=== PATIENT | male | born 1985 | race Caucasian/White ===

== ENCOUNTER 2022-07-16 16:04 | Emergency (ER) | payer MEDICAID ==
[~2022-07-16] VITALS: Ht 170.2 cm; Wt 65.8 kg
[2022-07-16 18:10] VITALS: BP 112/69
--- NOTE | 2022-07-16 18:10 | NUR ---
pt self presents to ed c/o suicidal ideation w/ plan to overdose on fentanyl. denies hi. requesting medical clearance [facility] to [facility]. gowned. security called for wanding. belongings to safe locker. awaiting md de dios.
--- NOTE | 2022-07-16 18:32 | NUR ---
covid specimen collected. 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
[2022-07-16 19:20] LABS: CARBON DIOXIDE 32 mmol/L (21-32); CHLORIDE 102 mmol/L (98-107); CREATININE 0.8 mg/dL (0.6-1.3); GLUCOSE 90 mg/dL (74-106); POTASSIUM 3.9 mmol/L (3.5-5.1); SODIUM SERUM 139 mmol/L (136-145); UREA NITROGEN, BLOOD 12 mg/dL (7-18)
[2022-07-16 19:27] LABS: ALANINE AMINOTRANSFERASE 25 U/L (12-78); ALBUMIN 4.4 g/dL (3.4-5.0); ALKALINE PHOSPHATASE 85 U/L (46-116); ASPARTATE AMINOTRANSFERASE 21 U/L (15-37); BILIRUBIN,DIRECT 0.1 mg/dL (0.0-0.2); BILIRUBIN,TOTAL 0.7 mg/dL (0.2-1.0); TOTAL PROTEIN, SERUM 7.8 g/dL (6.4-8.2)
[2022-07-16 19:29] LABS: BILIRUBIN,URINE NEGATIVE (NEGATIVE); COLOR,URINE YELLOW (YELLOW); LEUKOCYTE ESTERASE ,URINE NEGATIVE (NEGATIVE); NITRITE, URINE NEGATIVE (NEGATIVE); PH,URINE 5.5 (5.0-8.0); PROTEIN,URINE NEGATIVE (NEGATIVE); UGLUCOSE NEGATIVE (NEGATIVE); UROBILINOGEN,URINE 0.2 EU/dL (0.2)
[2022-07-16 19:32] LABS: ACETAMINOPHEN 0 ug/ml (10-30); ALCOHOL, BLOOD < 3 mg/dL (0-0)
[2022-07-16 20:16] LABS: BASOPHILS # (AUTO) 0.1 K/uL (0.0-0.2); BASOPHILS % (AUTO) 0.9 % (0.0-2.0); EOSINOPHILS % (AUTO) 5.2 % (0.0-6.0); HEMATOCRIT 43 % (39-51); HEMOGLOBIN 14.4 g/dL (13.5-17.5); LYMPHOCYTES # (AUTO) 3.1 K/uL (0.8-4.8); MEAN CORPUSCULAR HGB CONC 33 g/dl (31.0-36.0); MEAN CORPUSCULAR VOLUME 100 fL (80-96); MONOCYTES # (AUTO) 1.1 K/uL (0.1-1.30); MONOCYTES % (AUTO) 10.1 % (2.0-12.0); NEUTROPHILS # (AUTO) 5.7 K/uL (1.8-8.9); NEUTROPHILS % (AUTO) 53.8 % (43.0-81.0); PLATELET COUNT (AUTO) 556 K/uL (150-450); RED BLOOD CELL COUNT(AUTO) 4.33 MIL/uL (4.5-6.0); WHITE BLOOD COUNT (AUTO) 10.5 K/uL (4.3-11.0)
--- NOTE | 2022-07-16 23:05 | NUR ---
FACESHEET AND CLINICALS FAXED TO [facility].
--- NOTE | 2022-07-17 07:47 | NUR ---
PT NOT ACCEPTED AT [facility] DUE TO INSURANCE AREA OF COVERAGE.
--- NOTE | 2022-07-17 08:18 | NUR ---
CALLED AND LEFT MULTIPLE VOICEMAILS FOR SOCIAL WORKERS TO HELP FIND PLACEMENT
--- NOTE | 2022-07-17 08:42 | NUR ---
CALLED PHLEBOTOMIST ASSOCIATE BON, WILL COME SPEAK TO PT AT 0930.
--- NOTE | 2022-07-17 10:55 | NUR ---
SS Consult: SS consult requested for suicidal ideation, homessess and drug dependence. The pt. is a 37 year old male who per EMR, presented to the ED for suicidal ideation with plan to OD on Fentanyl. LILLIANA met with pt. at bedside. The pt. is alert & oriented x 4 and make avoidant eye contact. Pt. has dysphoric mood & affect. Pt. has pressured speech and tangential thought process. Pt. appears unkempt. Pt. is restless, fidgeting his hands. Pt. admits to paranoid persecutory delusions stating that he is being followed by people constantly offering him meth and undercover youth services specialist. Pt. also states he has suicidal thoughts with plan to OD on Fentanyl. Per pt. he has commanding auditory hallucination encouraging him to hurt himself. Pt. states he is not sure if the people that offer him meth are visual hallucinations. LILLIANA offered pt. voluntary psychiatric admissions and pt. was agreeable. LILLIANA explored pt.'s mental health history and pt. states he has been diagnosed with Schizophrenia in the past and is not on any medication for this currently. LILLIANA explored pt.'s living situation. Pt. states he is currently experiencing homelessness. Pt. stated his mailing address is [[address] [place] [address] TEL: [phone]]. LILLIANA exoplored pt.'s drug & alcohol use. Pt. states he uses Cannnabinoids daily and Meth monthly. LILLIANA provided pt. with outpatient treatment for drugs. Pt.'s support system includes his sister, Corrine [phone]. Per pt. he receives Food stamps and GR. DC PLAN: LILLIANA faxed clinicals to [facility] fax: [phone] for voluntary psych admission. Pt. was agreeable to possible adission to [facility]. LILLIANA provided to. with resources for homelessness drug use and outpatient mental health and pt. accepted it. Pt. signed homeless waiver and it was placed in the chart. LILLIANA discussed DC plan with Dr. Dexter. LILLIANA provided the following resources: Year-round shelters: [facility] [address] [place] [address] ; [facility] [address] [place] [address]; [facility] [id number] [facility] [phone] Hygiene: [facility]: [address] [place] ; [facility] [address] [facility] ; [facility] [address], [place] . Food Resources: [place] [facility]- [address] [place]; Meet Each Need with Dignity ([facility]) [address] [facility]; [facility] [address] [facility]; [facility] [address] [facility] [place]. Mental Health resources provided: [facility] [address] [place], [place] [address] ; [facility] [address] [facility] [address], [place], [place] [phone] ; [facility] [address] [facility] [place], [place] [id number] ; [facility] [address] [place], [place] [id number] Healthcare Clinics: [facility] [address] [facility], [address] [facility] ; [facility] [address] [facility] [address] [place] [address]; [facility] [place] [address] [facility] [place] [phone] Counseling--Outpatient [facility] [address] [facility], [place] [address] (Specializes in in-depth psychotherapy for emotional distress: anxiety, depression, interpersonal conflicts, life transitions, childhood abuse) [facility] [address] [place], [place] [phone] (Assist with solving problem marital difficulties, separation & divorce, aging parents, & grief, chronic & terminal illness) [facility] [address] [place] [address] (Deal with loss & grief, anxiety, marital difficulties) Homebound/Mental Health Services [address], [address] [place] [address] (Provide in-home mental services to people who are incapable of leaving their homes) [facility] [address] [place] [address] [facility] [address] [place] [address] PSYCHIATRIC OUTPATIENT SERVICES [facility] Partial Hospitalization and Intensive Outpatient Program (Managed Care and [place] Only)[address] [facility] [facility] [phone] [facility] Partial Hospitalization and Outpatient Bguwark[address] [place] [address] [place], [place] [phone] Critical access hospital Mental [facility] [place] [address] [place], [place] [phone] [facility] Partial Hospitalization and Outpatient Hskrhne43074 [place], [phone] Substance Abuse resources provided included: [facility] Substance Abuse Self-Helpline (SAS) ; [facility] [address] [facility]. [place] [address] ; [facility] [address] [facility] [address] ; [facility] [address] [place] portiaVA [facility] [address] ; [facility] [address] [facility] [address] ; [facility] 49[address] [facility] [address] ; [facility] [place] [address] [facility] [address] ; [facility] Substance Abuse Helpline(SAS)-[facility] ; [facility] ; [facility] [place]; [facility] [place]; [facility] [place]; [facility] Carmelo Angelo; [facility] Daisha; [place]; [facility] [place]; [facility], [facility]. Shalini Yoon; Alcoholics Anonymous -SFV; Xc-Qxok-Ucqymbu ; Marijuana Anonymous -[facility]; Narcotics Anonymous www.na.org;
--- NOTE | 2022-07-17 11:52 | NUR ---
PT ACCEPTED TO [facility] UND[facility]. DELGADO. NUMBER FOR REPORT IS [phone].
--- NOTE | 2022-07-17 13:20 | NUR ---
REPORT GIVEN TO VIVEK MALDONADO. PATIENT AWAITING TRANSPORT TO [facility].
--- NOTE | 2022-07-17 13:35 | NUR ---
[facility] CALLED FOR TRANSPORT, ETA 75-90 MIN PER TRESSA
--- NOTE | 2022-07-17 14:29 | NUR ---
TRANPORTED TO [facility] IN STABLE CONDITION.
== END 2022-07-17 14:33 ==
LOC: ER 16:17
DX: R45.851 Suicidal ideations (principal); Z20.822 Contact with and (suspected) exposure to COVID-19; Z90.81 Acquired absence of spleen; Z59.00 Homelessness unspecified
CPT/HCPCS: 99285; 85025; 80048; 80076; 81003; 36415; 87426; 80143; 80320; 80307; C9803; G0480